=== PATIENT | female | born 1985 | race Caucasian/White ===

== ENCOUNTER 2017-09-28 11:35 | Emergency (ER) | payer MEDICAID ==
--- NOTE | 2017-09-28 13:26 | EDPHY ---
H & P Stated Complaint: lower abdominal pain and back pain starting two days ago, [place] today Time Seen by Provider: 09/28/17 13:03 HPI/ROS: CHIEF COMPLAINT: Right lower quadrant abdominal pain x2 days HISTORY OF PRESENT ILLNESS: 32-year-old female complaining of 2 days of right lower quadrant abdominal pain and right flank pain without nausea vomiting or abnormal bowel movement, without abnormal urinary habits. Pain reproducible with palpation of same location. She is postop day 5 post cervical biopsy after abnormal Pap smear. This was performed in [place]. Has not experienced vaginal bleeding. No vaginal discharge. No Foul-smelling vaginal discharge. No fever or chills. No dysuria no hematuria , no increased frequency. Last oral intake 10:00 a.m. today consisting of toast REVIEW OF SYSTEMS: A ten point review of systems was performed and is negative with the exception of the items mentioned in the HPI PAST MEDICAL & SURGICAL HISTORY: Postop day 5 post cervical biopsy post abnormal Pap smear SOCIAL HISTORY: Nonsmoker. Visiting from [place], in town for a wedding PHYSICAL EXAM (Prior to examination, patient consented to physical exam, hands were washed and my usual and customary physical exam procedures followed) 1) GENERAL: Well-developed, well-nourished, alert and oriented. Appears nontoxic, appears to be in no acute distress, smiling shakes my hand 2) HEAD: Normocephalic, atraumatic 3) HEENT: Pupils equal, round, reactive to light bilaterally. Sclera anicteric. 4) NECK: Full range of motion, no meningeal signs. 5) LUNGS: Clear auscultation bilaterally, no wheezes, no rhonchi, no retractions. 6) HEART: Regular rate and rhythm, no murmur, no heave, no gallop. 7) ABDOMEN: No guarding, focally tender to palpation McBurney's point, negative Barksdale's, negative Rovsing's, negative peritoneal sign, 8) MUSCULOSKELETAL: Moving all extremities, no focal areas of tenderness, no obvious trauma. No peripheral edema or discoloration. 9) BACK: Positive right CVA tenderness, no midline vertebral tenderness, no fluctuance, no step-off, no obvious trauma, no visual or palpable abnormality. 10) SKIN: No rash, no petechiae. 11) Psychiatric: Patient is oriented X 3, there is no agitation. 12) PELVIC (with female nurse Tressa at bedside): Normal female external genitalia, no external lesions visualized. Speculum examination reveals no vaginal bleeding or discharge, granulating cervical tissue with no signs of infection, no fetid odor no discharge from the office. normal vaginal rugae, os closed, no cervical motion tenderness, no adnexal tenderness or mass DIFFERENTIAL DIAGNOSIS: My differential diagnosis includes, but is not limited to, acute appendicitis, acute cholecystitis, bowel obstruction, acute pancreatitis, pyelonephritis, cervicitis, ovarian torsion, ectopic , gastritis and urinary tract infection. The patient understands that this diagnosis is provisional and can never be 100% accurate. This is a partial list of diagnoses considered. These considerations are based on history, physical exam, past history and reassessment. - Personal History LMP (Females 10-55): IUD In Place - Medical/Surgical History Hx Asthma: No Hx Chronic Respiratory Disease: No Hx Diabetes: No Hx Cardiac Disease: No Hx Renal Disease: No Hx Cirrhosis: No Hx Alcoholism: No Hx HIV/AIDS: No Hx Splenectomy or Spleen Trauma: No Other PMH: throat abcess - Social History Smoking Status: Never smoked Constitutional: Initial Vital Signs Temperature (C) 36.9 C 09/28/17 11:44 Heart Rate 89 09/28/17 11:44 Respiratory Rate 18 09/28/17 11:44 Blood Pressure 92/53 L 09/28/17 11:44 O2 Sat (%) 98 09/28/17 11:44 O2 Delivery Mode Room Air Allergies/Adverse Reactions: No Known Allergies Allergy (Unverified 09/28/17 11:44) Home Medications: Medication Instructions Recorded levOFLOXACIN [levAQUIN (*)] 750 mg PO DAILY 4 Days tab 09/28/17 Medical Decision Making - Diagnostics Imaging Results: Imaging Impressions Abdomen Ultrasound 09/28/17 13:26 Impression: No source for right lower quadrant tenderness identified. 2. Abdominal Sonogram , Retroperitoneal Complete, 14:01 Clinical Indications: Right flank pain Findings: The kidneys are normal in size and homogeneous. There is no hydronephrosis or perinephric fluid. Bilateral ureteral jets are seen in the urinary bladder. Prevoid volume = 126 mL. Post void residual = 0 mL. Impression: Normal renal sonogram. No evidence of the patient is passing a right ureteral stone. 3. Pelvic sonogram, 13:41 History: Right-sided pain Technique: Transabdominal and transvaginal scanning is performed. Transvaginal scanning is performed to better evaluate the right ovary and its Doppler blood flow. Findings: There is no free or loculated pelvic fluid. There is an IUD in normal position within the normal-appearing uterus. There is no intrauterine fluid. Endometrium is normal in thickness measuring 3 mm. There are small simple cysts in each ovary measuring 1.8 cm on the right and 2.8 cm on the left. There is normal duplex Doppler blood flow in each ovary with resistive index measuring 0.59 in each ovary. Impression: Dominant follicle in each ovary. No source for right sided pain identified. Results of all studies discussed with Krish Ashford at 2:40 PM. Abdomen/Pelvis Ultrasound 09/28/17 13:26 Impression: No source for right lower quadrant tenderness identified. 2. Abdominal Sonogram , Retroperitoneal Complete, 14:01 Clinical Indications: Right flank pain Findings: The kidneys are normal in size and homogeneous. There is no hydronephrosis or perinephric fluid. Bilateral ureteral jets are seen in the urinary bladder. Prevoid volume = 126 mL. Post void residual = 0 mL. Impression: Normal renal sonogram. No evidence of the patient is passing a right ureteral stone. 3. Pelvic sonogram, 13:41 History: Right-sided pain Technique: Transabdominal and transvaginal scanning is performed. Transvaginal scanning is performed to better evaluate the right ovary and its Doppler blood flow. Findings: There is no free or loculated pelvic fluid. There is an IUD in normal position within the normal-appearing uterus. There is no intrauterine fluid. Endometrium is normal in thickness measuring 3 mm. There are small simple cysts in each ovary measuring 1.8 cm on the right and 2.8 cm on the left. There is normal duplex Doppler blood flow in each ovary with resistive index measuring 0.59 in each ovary. Impression: Dominant follicle in each ovary. No source for right sided pain identified. Results of all studies discussed with Krish Ashford at 2:40 PM. Pelvic/Renal Ultrasound 09/28/17 13:26 Impression: No source for right lower quadrant tenderness identified. 2. Abdominal Sonogram , Retroperitoneal Complete, 14:01 Clinical Indications: Right flank pain Findings: The kidneys are normal in size and homogeneous. There is no hydronephrosis or perinephric fluid. Bilateral ureteral jets are seen in the urinary bladder. Prevoid volume = 126 mL. Post void residual = 0 mL. Impression: Normal renal sonogram. No evidence of the patient is passing a right ureteral stone. 3. Pelvic sonogram, 13:41 History: Right-sided pain Technique: Transabdominal and transvaginal scanning is performed. Transvaginal scanning is performed to better evaluate the right ovary and its Doppler blood flow. Findings: There is no free or loculated pelvic fluid. There is an IUD in normal position within the normal-appearing uterus. There is no intrauterine fluid. Endometrium is normal in thickness measuring 3 mm. There are small simple cysts in each ovary measuring 1.8 cm on the right and 2.8 cm on the left. There is normal duplex Doppler blood flow in each ovary with resistive index measuring 0.59 in each ovary. Impression: Dominant follicle in each ovary. No source for right sided pain identified. Results of all studies discussed with Krish Ashford at 2:40 PM. Images myself ED Course/Re-evaluation: 1:26 p.m.: Will obtain laboratory studies including pelvic and abdominal ultrasound. I saw this patient independently based on established practice protocols. Care of patient under supervision of secondary supervising physician Dr Laughlin with whom I discussed case. 3:05 p.m.: Ultrasound is nondiagnostic for appendicitis radiologist noted that she was focally tender to palpation over McBurney's point. She is noted to have elevated white blood cell count and has subjective complaints of pain at McBurney's point. I recommended CT imaging. 4:35 p.m.: Re-evaluation. Discussed with her diagnostic studies. Discussed with her her IUD findings. Recommend secondary form contraception as her IUD may be a less than functional. She is noted to have a fever at this time but overall appears well. She has no radiographic evidence of appendicitis, is noted to have radiographic evidence of pyelonephritis on CT imaging. Of note her urinalysis is positive for trace bacteria and 2+ microscopic blood otherwise negative. Urine will be cultured. Given her radiographic findings and her physical exam findings positive for CVA tenderness, recommended initiation of antibiotic therapy Levaquin. had a lengthy discussion with the patient and informed her that I think that post colposcopy and cervical biopsy infectious etiology are less than likely etiology of her symptoms absence of foul odor, absence of cervical motion tenderness or visible abnormality on visualization of the cervix, no radiographic or ultrasonographic abnormality. I discussed the case with secondary supervising physician Dr. David Laughlin on numerous instances. Patient feels comfortable being discharged. Definitely if she develops new or worsening symptoms she needs to return to the ER immediately for re-evaluation. She feels comfortable being discharged. - Data Points Laboratory Results: Laboratory Results 09/28/17 12:30 09/28/17 12:30 09/28/17 09/28/17 09/28/17 16:55 12:30 12:30 WBC RBC Hgb Hct MCV MCH MCHC RDW Plt Count MPV Neut % (Auto) Lymph % (Auto) [place] % (Auto) Eos % (Auto) Baso % (Auto) Nucleat RBC Rel Count Absolute Neuts (auto) Absolute Lymphs (auto) Absolute Monos (auto) Absolute Eos (auto) Absolute Basos (auto) Absolute Nucleated RBC Immature Gran % Immature Gran # RBC/WBC/PLT Morphology Platelet Estimate Sodium Potassium Chloride Carbon Dioxide Anion Gap BUN Creatinine Estimated GFR Glucose Calcium Total Bilirubin Conjugated Bilirubin Unconjugated Bilirubin AST ALT Alkaline Phosphatase Total Protein Albumin Lipase Beta HCG, Qual NEGATIVE Urine Color PALE YELLOW Urine Appearance CLEAR Urine pH 6.0 (5.0-7.5) Ur Specific Isabel 1.002 (1.002-1.030) Urine Protein NEGATIVE (NEGATIVE) Urine Ketones NEGATIVE (NEGATIVE) Urine Blood 2+ H (NEGATIVE) Urine Nitrate NEGATIVE (NEGATIVE) Urine Bilirubin NEGATIVE (NEGATIVE) Urine Urobilinogen NEGATIVE EU EU (0.2-1.0) Ur Leukocyte Esterase NEGATIVE (NEGATIVE) Urine RBC 1-3 /hpf /hpf (0-3) Urine WBC 1-3 /hpf /hpf (0-3) Ur Epithelial Cells TRACE /lpf /lpf (NONE-1+) Urine Bacteria TRACE /hpf H /hpf (NONE SEEN) Urine Glucose NEGATIVE (NEGATIVE) C.trachomatis RNA (TMA) Pending N.gonorrhoeae RNA (TMA) Pending 09/28/17 09/28/17 12:30 12:30 WBC 13.42 10^3/uL H 10^3/uL (3.80-9.50) RBC 4.32 10^6/uL 10^6/uL (4.18-5.33) Hgb 13.8 g/dL g/dL (12.6-16.3) Hct 40.9 % % (38.0-47.0) MCV 94.7 fL fL (81.5-99.8) MCH 31.9 pg pg (27.9-34.1) MCHC 33.7 g/dL g/dL (32.4-36.7) RDW 12.4 % % (11.5-15.2) Plt Count 191 10^3/uL 10^3/uL (150-400) MPV 9.9 fL fL (8.7-11.7) Neut % (Auto) 70.7 % % (39.3-74.2) Lymph % (Auto) 15.9 % % (15.0-45.0) [place] % (Auto) 12.8 % % (4.5-13.0) Eos % (Auto) 0.1 % L % (0.6-7.6) Baso % (Auto) 0.1 % L % (0.3-1.7) Nucleat RBC Rel Count 0.0 % % (0.0-0.2) Absolute Neuts (auto) 9.49 10^3/uL H 10^3/uL (1.70-6.50) Absolute Lymphs (auto) 2.13 10^3/uL 10^3/uL (1.00-3.00) Absolute Monos (auto) 1.72 10^3/uL H 10^3/uL (0.30-0.80) Absolute Eos (auto) 0.01 10^3/uL L 10^3/uL (0.03-0.40) Absolute Basos (auto) 0.01 10^3/uL L 10^3/uL (0.02-0.10) Absolute Nucleated RBC 0.00 10^3/uL 10^3/uL (0-0.01) Immature Gran % 0.4 % % (0.0-1.1) Immature Gran # 0.05 10^3/uL 10^3/uL (0.00-0.10) RBC/WBC/PLT Morphology TNP Platelet Estimate TNP Sodium 137 mEq/L mEq/L (135-145) Potassium 4.1 mEq/L mEq/L (3.3-5.0) Chloride 104 mEq/L mEq/L (97-110) Carbon Dioxide 28 mEq/l mEq/l (22-31) Anion Gap 5 mEq/L L mEq/L (8-16) BUN 8 mg/dL mg/dL (7-23) Creatinine 0.7 mg/dL mg/dL (0.6-1.0) Estimated GFR > 60 Glucose 91 mg/dL mg/dL (70-100) Calcium 9.5 mg/dL mg/dL (8.5-10.4) Total Bilirubin 0.5 mg/dL mg/dL (0.1-1.4) Conjugated Bilirubin 0.1 mg/dL mg/dL (0.0-0.5) Unconjugated Bilirubin 0.4 mg/dL mg/dL (0.0-1.1) AST 17 IU/L IU/L (14-46) ALT 19 IU/L IU/L (9-52) Alkaline Phosphatase 58 IU/L IU/L (38-126) Total Protein 7.5 g/dL g/dL (6.3-8.2) Albumin 4.1 g/dL g/dL (3.5-5.0) Lipase 28 IU/L IU/L (23-300) Beta HCG, Qual Urine Color Urine Appearance Urine pH Ur Specific Isabel Urine Protein Urine Ketones Urine Blood Urine Nitrate Urine Bilirubin Urine Urobilinogen Ur Leukocyte Esterase Urine RBC Urine WBC Ur Epithelial Cells Urine Bacteria Urine Glucose C.trachomatis RNA (TMA) N.gonorrhoeae RNA (TMA) Departure - Departure Disposition: Home, Routine, Self-Care Clinical Impression: Acute pyelonephritis Condition: Good Instructions: Urinary Tract Infection in Women (ED) Additional Instructions: Return to the ER immediately if you experience fevers/chills, flu like symptoms , inability to tolerate oral intake, nausea or vomiting, or any other symptoms that concern you. Referrals: Follow-up, with your OBGYN in [place] in 2 days [Other] - As per Instructions Prescriptions: levOFLOXACIN [levAQUIN (*)] 750 mg PO DAILY 4 Days tab
[2017-09-28 13:47] LABS: PLATELET COUNT 191 10^3/uL (150-400)
[2017-09-28] MEDS ORDERED: IOPAMIDOL (ISOVUE-300) 100 ML BTL ONE (15:55)
[2017-09-28 16:56] VITALS: BP 107/61
[2017-09-30 12:57] LABS: GC AMPLIFICATION GENPROBE NEGATIVE (NEGATIVE)
== END 2017-09-28 17:21 | disposition home or self-care (01) ==
DX: N10 Acute pyelonephritis (principal); B95.2 Enterococcus as the cause of diseases classified elsewhere
CPT/HCPCS: Q9967